=== PATIENT | male | born 1975 ===

== ENCOUNTER 2018-04-30 01:45 | Emergency (ER) | payer SELFPAY ==
[2018-04-30] MEDS ORDERED: Ketorolac Tromethamine 60 MG/2 ML VIAL ONE (03:05)
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
== END 2018-04-30 04:13 | disposition home or self-care (01) ==
LOC: ERS 01:45
DX: S22.41XA Multiple fractures of ribs, right side, initial encounter for closed fracture (principal); I10 Essential (primary) hypertension; F17.210 Nicotine dependence, cigarettes, uncomplicated; V29.9XXA Motorcycle rider (driver) (passenger) injured in unspecified traffic accident, initial encounter
CPT/HCPCS: 96372; J1885